=== PATIENT | male | born 1990 | race Caucasian/White ===

== ENCOUNTER 2021-02-19 22:04 | Emergency (ER) | payer MEDICAID ==
[~2021-02-19] VITALS: Ht 200.7 cm; Wt 86.3 kg
[~2021-02-19 22:04] MED LIST: FLEX10TA2 PO; PERC7.5T12 PO; TRAM100T13 PO
[2021-02-19] MEDS ORDERED: HYDR-3716 PO (22:41)
[2021-02-19 23:32] LABS: HEMATOCRIT 42.1 % (42.0-52.0); HEMOGLOBIN 14.5 g/dl (13.5-17.5); MEAN CORPUSCULAR HEMOGLOBIN 30.1 pg (27.0-33.0); MEAN CORPUSCULAR HGB CONC 34.4 g/dl (32.0-36.5); MEAN CORPUSCULAR VOLUME 87.5 fl (80.0-96.0); PLATELET COUNT, AUTOMATED 170 10^3/uL (150-450); RED BLOOD COUNT 4.81 10^6/uL (4.30-6.10); WHITE BLOOD COUNT 6.7 10^3/uL (4.0-10.0)
[2021-02-20 00:08] LABS: AMPHETAMINES LEVEL URINE POSITIVE (NEGATIVE); BARBITURATES URINE NEGATIVE (NEGATIVE); BENZODIAZEPINES URINE NEGATIVE (NEGATIVE); CANNABINOIDS URINE POSITIVE (NEGATIVE); COCAINE METABOLITE URINE NEGATIVE (NEGATIVE); METHADONE URINE NEGATIVE (NEGATIVE); OPIATES URINE NEGATIVE (NEGATIVE); PHENCYCLIDINE URINE NEGATIVE (NEGATIVE)
[2021-02-20 00:20] LABS: ACETAMINOPHEN LEVEL < 2.0 UG/ML (10.0-30.0); ALBUMIN 4.1 GM/DL (3.2-5.2); ALT/SGPT 21 U/L (12-78); BILIRUBIN,DIRECT 0.4 MG/DL (0.0-0.2); BILIRUBIN,TOTAL 1.8 MG/DL (0.2-1.0); BLOOD UREA NITROGEN 16 MG/DL (7-18); CALCIUM LEVEL 8.7 MG/DL (8.5-10.1); CARBON DIOXIDE LEVEL 28 MEQ/L (21-32); CHLORIDE LEVEL 108 MEQ/L (98-107); CREATININE FOR GFR 0.78 MG/DL (0.70-1.30); ETHYL ALCOHOL (ETHANOL) < 0.003 % (0.000-0.010); GLOMERULAR FILTRATION RATE > 60.0 (>60); GLUCOSE, FASTING 88 MG/DL (70-100); POTASSIUM SERUM 4.1 MEQ/L (3.5-5.1); SALICYLATE LEVEL < 1.7 MG/DL (5.0-30.0); SODIUM LEVEL 141 MEQ/L (136-145); TOTAL PROTEIN 6.9 GM/DL (6.4-8.2)
[2021-02-20 05:20] VITALS: BP 116/68
--- NOTE | 2021-02-20 15:35 | MHIPNPDOC ---
[facility] Progress Note Progress Note DATE OF SERVICE: 02/20/21 This automotive service writer discussed patient's history and presentation with Negin Luis and concluded that the patient didn't need to be admitted since he had made vague statements about hurting himself but he did not have a plan or intent. he said that out fo frustration and anger since he has problems with his GF's family and with her. He was discharged home after ED staff memeber was able to sepak with his GF who said he didn't have any concerns about the patient going back home. Vital Signs Vital Signs Date Time Temp Pulse Resp B/P (MAP) Pulse Ox O2 Delivery O2 Flow Rate FiO2 02/20/21 05:20 98.8 74 20 116/68 (84) 100 Room Air Laboratory Data 24H Labs Laboratory Tests 2 02/19/21 23:21: Nucleated Red Blood Cells % (auto) 0.0, Anion Gap 5L, Glomerular Filtration Rate > 60.0, Calcium Level 8.7, Total Bilirubin 1.8H, Direct Bilirubin 0.4H, Aspartate Amino Transf (AST/SGOT) 14, Alanine Aminotransferase (ALT/SGPT) 21, Alkaline Phosphatase 106, Total Protein 6.9, Albumin 4.1, Albumin/Globulin Ratio 1.5, Thyroid Stimulating Hormone (TSH) 1.020, Salicylates Level < 1.7L, Urine Opiates Screen NEGATIVE, Urine Methadone Screen NEGATIVE, Acetaminophen Level < 2.0L, Urine Barbiturates Screen NEGATIVE, Urine Phencyclidine Screen NEGATIVE, Urine Amphetamines Screen POSITIVEH, Urine Benzodiazepines Screen NEGATIVE, Urine Cocaine Metabolite Screen NEGATIVE, Urine Cannabinoids Screen POSITIVEH, E thyl Alcohol Level < 0.003 CBC/BMP Laboratory Tests 02/19/21 23:21 Allergies Coded Allergies: No Known Drug Allergies (Verified Allergy, Unknown, 02/19/21) JULIEN FOLEY MD Feb 20, 2021 15:35
== END 2021-02-20 05:22 | disposition home or self-care (01) ==
LOC: M ED 22:04
DX: Z04.6 Encounter for general psychiatric examination, requested by authority (principal); F43.0 Acute stress reaction